=== PATIENT | male | born 1980 | race Caucasian/White ===

== ENCOUNTER 2024-12-25 16:10 | Emergency (ER) | payer BC ==
[2024-12-25 17:30] LABS: HEMATOCRIT 43.9 % (42.0-52.0); HEMOGLOBIN 15.7 g/dL (14.0-18.0); MEAN CORPUSCULAR HEMOGLOBIN 31.2 pg (28.0-32.0); MEAN CORPUSCULAR HGB CONC 35.8 g/dL (32.0-36.0); MEAN CORPUSCULAR VOLUME 87.1 fL (83.0-99.0); MEAN PLATELET VOLUME 8.6 fL (9.4-12.4); PLATELET COUNT,PLT 247 K/uL (150-400); RED BLOOD CELL COUNT 5.04 M/uL (4.52-5.90); WHITE BLOOD CELL COUNT,WBC 16.09 K/uL (3.9-11.3)
[2024-12-25] MEDS: Sodium Chloride 0.9% 2.5 ML Syringe FLUSH PRN (17:35)
[2024-12-25] MEDS: Sodium Chloride 0.9% 10 ML Syringe FLUSH PRN (17:35)
[2024-12-25] MEDS: Sodium Chloride 0.9% 1,000 ML IV ONE (17:36)
[2024-12-25 17:53] LABS: A/G RATIO 0.8 (0.9-1.6); ALBUMIN 3.9 g/dL (3.4-5.0); BILIRUBIN TOTAL 1.3 mg/dL (0.2-1.0); CALCIUM 9.4 mg/dL (8.5-10.1); CARBON DIOXIDE,CO2 25.2 mmol/L (21.0-32.0); CREATININE 1.2 mg/dL (0.8-1.3); EST CRCL DRUG DOSING (CG) 72.68 mL/min; POTASSIUM,K 3.8 mmol/L (3.5-5.1); PROTEIN TOTAL,TP 8.6 g/dL (6.4-8.2)
[2024-12-25] MEDS: Ondansetron 4 MG/2 ML SDV IVPUSH ONE (18:03)
[2024-12-25] MEDS: Morphine 4 MG/ML Syringe IVPUSH ONE (18:03)
[2024-12-25] MEDS: Iopamidol 755 MG/ML 500 ML Multipack Bottle IVPUSH STA (18:06)
[2024-12-25 18:26] LABS: EOSINOPHILS ABSOLUTE MAN 0.16 K/uL (0.00-0.45); EOSINOPHILS PERCENT MAN 1 % (0-6); LYMPHOCYTES ABSOLUTE MAN 3.06 K/uL (1.00-4.80); LYMPHOCYTES PERCENT MAN 19 % (24-44); MONOCYTES ABSOLUTE MAN 1.61 K/uL (0.00-0.80); MONOCYTES PERCENT MAN 10 % (0-8); SEG NEUTROPHILS ABSOLUTE MAN 11.26 K/uL (1.80-7.70); SEG NEUTROPHILS PERCENT MAN 70 % (41-71)
[2024-12-25] MEDS: cefTRIAXone 1 GM in Sodium Chloride 0.9% 50 ML IV ONE (18:44)
[2024-12-25 19:00] LABS: APPEARANCE,URINE CLEAR; BILIRUBIN,URINE NEGATIVE (NEGATIVE); COLOR,URINE YELLOW; GLUCOSE,URINE NEGATIVE (NEGATIVE); KETONES,URINE NEGATIVE (NEGATIVE); LEUKOCYTE ESTERASE,URINE NEGATIVE (NEGATIVE); NITRITE,URINE NEGATIVE (NEGATIVE); OCCULT BLOOD,URINE NEGATIVE (NEGATIVE); PROTEIN,URINE NEGATIVE (NEGATIVE)
== END 2024-12-25 19:26 | disposition home or self-care (01) ==
LOC: MW.ED 16:10
DX: N45.1 Epididymitis (principal); Z75.8 Other problems related to medical facilities and other health care; Z79.899 Other long term (current) drug therapy
CPT/HCPCS: 36415; 74177; 76870; 80053; 81003; 85025; 93976; 96365; 96375; 99284; J0696; J2270; J2405; J7030; Q9967; 99283